=== PATIENT | female | born 1965 | race Hispanic/Latino ===

== ENCOUNTER 2016-10-25 11:29 | Emergency (ER) | payer OTHER ==
[~2016-10-25] VITALS: Ht 149.9 cm; Wt 75.0 kg
[2016-10-25 11:32] VITALS: BP 131/83; PULSE 68; RESP 16; O2SAT 100
[2016-10-25] MEDS ORDERED: DULO30CA50 PO (11:35)
--- NOTE | 2016-10-25 11:43 | ED.REPORT ---
HPI-Rash / Abscess Date of Service Oct 25, 2016 ED Provider: Odalys Ziegler History of Present Illness: 50-year-old female here for an abscess on her right anterior thigh. Few months ago it was I&D by her PCP but never fully went away. One month ago it began hurting more and becoming more symptomatic. It is not draining at this time. It is not much bigger than it has beenfine but it is more tender. He complains of a sore throat and one episode of vomiting last night. Denies having a fever. She is otherwise healthy Nursing Notes Stated Complaint: POSSIBLE ABSCESS ON RIGHT LEG Chief Complaint: Skin Rash/Abscess Nursing Notes Reviewed: Yes Allergies: Coded Allergies: No Known Allergies (Verified , 10/25/16) Scheduled Cephalexin (Keflex) 500 Mg Capsule 500 MG PO QID Duloxetine (Duloxetine) 30 Mg Capsule.dr 30 MG PO DAILY Sulfamethoxazole/Trimeth 800-160 mg (Bactrim DS) 1 Each Tablet 1 TABLET PO BID General Time Seen by MD: 11:41 Chief Complaint Abscess Hx Obtained From: Patient Onset Occurred: More than a week ago... (6 months) Symptom Duration: Waxes and wanes Location: : Lower extremity Severity: Current: Moderate Similar Sx Previous: Yes Past Medical History Past Medical History Healthy Past Surgical History None Smoking History Former Smoker Social History Alcohol Use: Denies alcohol use Drug Use: Denies drug use Ambulatory Status Independent Review of Systems Review of Systems Note: abscess R anterior thigh Constitutional: Denies: Chills, Fatigue, Fever Ears / Nose / Throat: Reports: Sore throat Respiratory: Denies: Dyspnea on exertion Cardiovascular: Denies: Chest pain GI: Reports: Vomiting Musculoskeletal: Reports: Extremity pain (RLE) Skin: Reports Swelling Complete sys rev & neg: except as marked. Physical Exam Initial Vital Signs Vital Signs (First) Date Time Temp Pulse Resp B/P Pulse Ox O2 Delivery O2 Flow Rate FiO2 10/25/16 11:32 36.8 68 16 131/83 100 Room Air Initial VS: Reviewed Head / Eyes: Atraumatic, Normocephalic, PERRL ENT: Mucous membranes moist, Conjunctiva normal Neck: Supple, Non-tender, Full range of motion Respiratory: Breath sounds normal, Clear to auscultation, No respiratory distress Cardiovascular: Regular rate & rhythm, Heart sounds normal Neurologic: Alert, Oriented, Nonfocal Psychiatric: Mood/affect normal, Behavior normal, Normal thought content General/Constitutional: Awake, Alert, No acute distress Skin: Atraumatic, Color NL Rash / Lesion Notes: 1cm papule with lightly erythematous base present on R anterior mid thigh. firm, whitish/brown substance in center of wound. tender to palpate. Rash / Lesion Location: Positive: Thigh R Head / Eyes: Atraumatic, Normocephalic, PERRL, EOMI ENT: Atraumatic, Airway patent, Mucous membranes moist, Pharynx NL Respiratory / Chest: Atraumatic, Breath sounds NL, Breath sounds = bilat, No respiratory distress Cardiovascular: Heart rate NL, Regular rhythm, Heart sounds NL, No gallop, No murmurs, No rubs Procedures Incision & Drainage Abscess I & D Abscess: R anterior leg Anesthetized area with approximately 1/2 mL of lidocaine. He was a hard, firm substance in the top of this abscess. I completely removed it in one piece. Was a tiny bit of purulent drainage surrounding this. Left wound open to drain. Procedure Performed by: [facility] Consent / Setup / Site Prep: Informed consent provided Skin Preparation Agent: Normal saline Local Anesthesia: Lidocaine 1% Incised Abscess with Scalpel: #11 Pus Drained: Small, Purulent discharge Post-Procedure / Complications: Dressing applied, Tolerated procedure well, Patient stable Re-Eval/Medical Decision Med Decision/Clinical Course will put pt on bactrim and keflex for mixed cellulitis and abscess Discharge & Departure Impression: Primary Impression: Abscess Additional Impression: Upper respiratory infection URI type: unspecified viral URI Qualified Code: J06.9 - Acute upper respiratory infection, unspecified Disposition: Home Discharge Condition All VS Reviewed: Yes Condition: Stable Patient Instructions: Abscess (ED) Additional Instructions: Wound was left open to drain today. Apply gauze to catch this drainage change dressing twice a day or as it gets dirty. Take antibiotics as directed. Recheck wound in 2 days with your PCP. Return immediately if signs of worsening infection like increased pain, swelling, redness or worsening condition at all. Otherwise healing should take place in the next 1-2 weeks and the wound will gradually close. Do not soak wound, short showers are ok Referrals: Carola Almonte (PCP) Rachael Yadav EDSupervising Provider for APC: Zaid Perkins MD copies to: Rachael Yadav Linnea K ARNP Oct 25, 2016 11:43
[2016-10-25] MEDS ORDERED: TdaP Vaccine 0.5 mL Inj IM ONE (12:25)
[2016-10-25] MEDS ORDERED: CEPH-512 PO (12:33)
[2016-10-25] MEDS ORDERED: SULF1TAB7 PO (12:33)
== END 2016-10-25 12:48 | disposition home or self-care (01) ==
LOC: SED 11:29
DX: L02.415 Cutaneous abscess of right lower limb (principal); J06.9 Acute upper respiratory infection, unspecified; Z23 Encounter for immunization; Z87.891 Personal history of nicotine dependence